=== PATIENT | female | born 1960 | race American Indian/Alaskan Native ===

== ENCOUNTER 2017-01-29 23:30 | Emergency (ER) | payer MEDICARE ==
--- NOTE | 2017-01-30 02:41 | Emergency Department Report ---
ED ENT HPI - General Chief complaint: Dental/Oral Stated complaint: TOOTHACHE/SINUS PAIN Time Seen by Provider: 01/30/17 02:28 Source: patient Mode of arrival: Ambulatory Limitations: No Limitations - History of Present Illness Initial comments: Patient comes into the ER today with complaints of tooth pain and sinus pain for the past 1-2 weeks. Patient states that 2 weeks ago she thinks her filling came out of her tooth and about a week ago she started getting some swelling on the right side of her face as well as tooth pain. Patient has using peroxide solution rinsing her mouth which she believes started helping at first but the pain and swelling continues. Patient states she did call a dentist and they cannot get her in for another 3 weeks. MD complaint: tooth pain - Related Data Home Medications Medication Instructions Recorded Confirmed Last Taken Aspirin [Aspirin BABY CHEW TAB] 81 mg PO QDAY 06/23/13 06/23/13 06/23/13 08:00 Carvedilol [Coreg] 12.5 mg PO BID 06/23/13 06/23/13 06/23/13 08:00 Lisinopril [Zestril TAB] 40 mg PO QDAY 06/23/13 06/23/13 06/23/13 08:00 Triamterene [Dyrenium] 100 mg PO QDAY 06/23/13 06/23/13 06/23/13 08:00 Previous Rx's Medication Instructions Recorded Last Taken Type Acetaminophen/Codeine [Tylenol 1 tab PO Q6H PRN #20 tab 01/30/17 Unknown Rx /Codeine # 3 tab] Amoxicillin 1,000 mg PO BID #40 capsule 01/30/17 Unknown Rx Allergies Allergy/AdvReac Type Severity Reaction Status Date / Time bee venom (honey bee) Allergy Shortness Verified 06/23/13 23:38 of Breath raw shrimp Allergy Shortness Uncoded 06/23/13 23:38 of Breath ED Dental HPI - General Chief complaint: Dental/Oral Stated complaint: TOOTHACHE/SINUS PAIN Time Seen by Provider: 01/30/17 02:28 Source: patient Mode of arrival: Ambulatory Limitations: No Limitations - Related Data Home Medications Medication Instructions Recorded Confirmed Last Taken Aspirin [Aspirin BABY CHEW TAB] 81 mg PO QDAY 06/23/13 06/23/13 06/23/13 08:00 Carvedilol [Coreg] 12.5 mg PO BID 06/23/13 06/23/13 06/23/13 08:00 Lisinopril [Zestril TAB] 40 mg PO QDAY 06/23/13 06/23/13 06/23/13 08:00 Triamterene [Dyrenium] 100 mg PO QDAY 06/23/13 06/23/13 06/23/13 08:00 Previous Rx's Medication Instructions Recorded Last Taken Type Acetaminophen/Codeine [Tylenol 1 tab PO Q6H PRN #20 tab 01/30/17 Unknown Rx /Codeine # 3 tab] Amoxicillin 1,000 mg PO BID #40 capsule 01/30/17 Unknown Rx Allergies Allergy/AdvReac Type Severity Reaction Status Date / Time bee venom (honey bee) Allergy Shortness Verified 06/23/13 23:38 of Breath raw shrimp Allergy Shortness Uncoded 06/23/13 23:38 of Breath ED Review of Systems ROS: Stated complaint: TOOTHACHE/SINUS PAIN Other details as noted in HPI Constitutional: denies: chills, fever Eyes: denies: eye pain, eye discharge, vision change ENT: dental pain, congestion. denies: ear pain, throat pain Respiratory: denies: cough, shortness of breath, wheezing Cardiovascular: denies: chest pain, palpitations Endocrine: no symptoms reported Gastrointestinal: denies: abdominal pain, nausea, diarrhea Genitourinary: denies: urgency, dysuria, discharge Musculoskeletal: denies: back pain, joint swelling, arthralgia Skin: denies: rash, lesions Neurological: denies: headache, weakness, paresthesias Psychiatric: denies: anxiety, depression Hematological/Lymphatic: denies: easy bleeding, easy bruising ED Past Medical Hx - Past Medical History Previous Medical History?: Yes Hx Hypertension: Yes Hx Congestive Heart Failure: Yes - Surgical History Past Surgical History?: Yes Hx Breast Surgery: Yes (lumpectomy L breast 2002) - Social History Smoking Status: Never Smoker Substance Use Type: None - Medications Home Medications: Home Medications Medication Instructions Recorded Confirmed Last Taken Type Aspirin [Aspirin BABY CHEW TAB] 81 mg PO QDAY 06/23/13 06/23/13 06/23/13 08:00 History Carvedilol [Coreg] 12.5 mg PO BID 06/23/13 06/23/13 06/23/13 08:00 History Lisinopril [Zestril TAB] 40 mg PO QDAY 06/23/13 06/23/13 06/23/13 08:00 History Triamterene [Dyrenium] 100 mg PO QDAY 06/23/13 06/23/13 06/23/13 08:00 History Acetaminophen/Codeine [Tylenol 1 tab PO Q6H PRN #20 tab 01/30/17 Unknown Rx /Codeine # 3 tab] Amoxicillin 1,000 mg PO BID #40 capsule 01/30/17 Unknown Rx ED Physical Exam - General Limitations: No Limitations General appearance: alert, in no apparent distress - Head Head exam: Present: atraumatic, normocephalic - Eye Eye exam: Present: normal appearance, PERRL. Absent: conjunctival injection - ENT ENT exam: Present: mucous membranes moist, TM's normal bilaterally, normal external ear exam, other (upper dentures noted. Right lower molar tooth with surrounding gum erythematous and swelling. No obvious abscess noted. Diffuse dental decay noted. Right maxillary nasal mucosa redness and turbinates swelling with right maxillary sinus tenderness to percussion. Slight right mandibular swelling noted in the area of tooth pain.) - Neck Neck exam: Present: normal inspection, full ROM. Absent: lymphadenopathy - Respiratory Respiratory exam: Present: normal lung sounds bilaterally. Absent: respiratory distress - Cardiovascular Cardiovascular Exam: Present: regular rate, normal rhythm. Absent: systolic murmur, diastolic murmur, rubs, gallop - GI/Abdominal GI/Abdominal exam: Present: soft, normal bowel sounds - Extremities Exam Extremities exam: Present: normal inspection - Back Exam Back exam: Present: normal inspection - Neurological Exam Neurological exam: Present: alert, oriented X3 - Psychiatric Psychiatric exam: Present: normal affect, normal mood - Skin Skin exam: Present: warm, dry, intact, normal color. Absent: rash ED Course Vital Signs 01/29/17 23:55 Temperature 98.1 F Pulse Rate 103 H Respiratory 18 Rate Blood Pressure 149/99 O2 Sat by Pulse 100 Oximetry ED Medical Decision Making - Medical Decision Making Patient is nontoxic and hemodynamically stable. Patient does have signs consistent with dental infection as well as sinus infection. I will give patient some information on dental clinics or she may keep her previously scheduled dental appointment. Patient is in agreement with treatment plan and patient is stable for discharge. Critical care attestation.: If time is entered above; I have spent that time in minutes in the direct care of this critically ill patient, excluding procedure time. ED Disposition Clinical Impression: Pain, dental, Dental infection, Sinusitis Disposition: TO HOME OR SELFCARE Is pt being admited?: No Does the pt Need Aspirin: No Condition: Good Instructions: Dental Abscess (ED), Sinusitis (ED), Toothache (ED) Prescriptions: Acetaminophen/Codeine [Tylenol /Codeine # 3 tab] 1 tab PO Q6H PRN #20 tab PRN Reason: Pain Amoxicillin 1,000 mg PO BID #40 capsule Referrals: PRIMARY CARE, [Primary Care Provider] - 3-5 Days [facility] [Outside] - 3-5 Days Time of Disposition: 02:41
[2017-01-30 03:18] VITALS: BP 137/99
== END 2017-01-30 02:45 | disposition home or self-care (01) ==
LOC: ED 23:30
DX: J32.9 Chronic sinusitis, unspecified (principal); K04.7 Periapical abscess without sinus; I10 Essential (primary) hypertension; I50.9 Heart failure, unspecified
CPT/HCPCS: 99282

== ENCOUNTER 2019-02-02 19:37 | Emergency (ER) | payer MEDICARE ==
[2019-02-02 20:45] LABS: Basophils # (Auto) 0.1 K/mm3 (0.0-0.1); Basophils % (Auto) 1.4 % (0.0-1.8); Eosinophils # (Auto) 0.2 K/mm3 (0.0-0.4); Eosinophils % (Auto) 2.6 % (0.0-4.3); Hematocrit 40.2 % (30.3-42.9); Hemoglobin 13.3 gm/dl (10.1-14.3); Lymphocytes # (Auto) 3.2 K/mm3 (1.2-5.4); Lymphocytes % (Auto) 45.7 % (13.4-35.0); Mean Corpuscular HGB Conc 33 % (30-34); Mean Corpuscular Volume 90 fl (79-97); Monocytes # (Auto) 0.8 K/mm3 (0.0-0.8); Monocytes % (Auto) 11.1 % (0.0-7.3); Platelet Count 262 K/mm3 (140-440); Red Blood Count 4.45 M/mm3 (3.65-5.03); Red Cell Distribution Width 13.9 % (13.2-15.2)
[2019-02-02 21:17] LABS: Alanine Aminotransferase 7 units/L (7-56); BUN/Creatinine Ratio 14; Blood Urea Nitrogen 14 mg/dL (7-17); Calcium 9.4 mg/dL (8.4-10.2); Hemolysis Index 0
--- NOTE | 2019-02-02 21:22 | Emergency Department Report ---
HPI - General Chief Complaint: Abdominal Pain Time Seen by Provider: 02/02/19 20:56 - HPI HPI: 58-year-old -[place] female presents to the emergency department from home with complaint of a 2-3 days history of some pain to the right lower back and buttock that radiates around her hip to the lower abdomen and pelvis. It is a sharp and intermittent/spasmodic pain. It is not affected by the patient's movements or by ambulation. She also says that in this area she has multiple lesions that she describes as hives that keep popping up over the past few days. She has not taken anything for her symptoms prior to presentation. She denies any fever, nausea, vomiting, chest pain, dysuria, vaginal bleeding or discharge. She has a past medical history of congestive heart failure and hypertension. Her primary care physician is Dr. Beth Stanford. ED Past Medical Hx - Past Medical History Hx Hypertension: Yes Hx Congestive Heart Failure: Yes - Surgical History Past Surgical History?: Yes Hx Breast Surgery: Yes (lumpectomy L breast 2002) - Social History Smoking Status: Current Every Day Smoker - Medications Home Medications: Home Medications Medication Instructions Recorded Confirmed Last Taken Type Aspirin [Aspirin BABY CHEW TAB] 81 mg PO QDAY 06/23/13 06/23/13 06/23/13 08:00 History Carvedilol [Coreg] 12.5 mg PO BID 06/23/13 06/23/13 06/23/13 08:00 History Lisinopril [Zestril TAB] 40 mg PO QDAY 06/23/13 06/23/13 06/23/13 08:00 History Triamterene [Dyrenium] 100 mg PO QDAY 06/23/13 06/23/13 06/23/13 08:00 History Amoxicillin 1,000 mg PO BID #40 capsule 01/30/17 Unknown Rx Acetaminophen/Codeine [Tylenol 1 tab PO Q6H PRN #20 tab 02/02/19 Unknown Rx /Codeine # 3 tab] Valacyclovir HCl [Valtrex] 1,000 mg PO TID #21 tablet 02/02/19 Unknown Rx ED Review of Systems ROS: Stated complaint: SOB BLOATING LOWER BACK SIDE PAIN LESIONS ON BACK Other details as noted in HPI Comment: All other systems reviewed and negative Constitutional: denies: chills, fever Eyes: denies: eye pain, vision change ENT: denies: ear pain, throat pain Respiratory: denies: cough, shortness of breath Cardiovascular: denies: chest pain, palpitations Gastrointestinal: abdominal pain. denies: nausea, vomiting Genitourinary: denies: dysuria, discharge Musculoskeletal: back pain. denies: joint swelling Skin: denies: rash, lesions Neurological: denies: headache, numbness, paresthesias Physical Exam - Physical Exam Vital Signs: Vital Signs 02/02/19 19:44 Temperature 98.4 F Pulse Rate 96 H Respiratory 18 Rate Blood Pressure 164/91 O2 Sat by Pulse 100 Oximetry Physical Exam: GENERAL: The patient is well-developed well-nourished. HENT: Normocephalic. Atraumatic. Patient has moist mucous membranes. EYES: Extraocular motions are intact. NECK: Supple. Trachea is midline. CHEST/LUNGS: Clear to auscultation. There is no respiratory distress noted. HEART/CARDIOVASCULAR: Regular. There is no tachycardia. There is no murmur. ABDOMEN: Abdomen is soft. No reproducible abdominal pain to palpation. Patient has normal bowel sounds. There is no abdominal distention. SKIN: Skin is warm and dry. The patient has multiple raised red lesions, often linear appearing, to the right upper buttock and lower lumbar and around the right hip and lower flank. No current weeping, drainage or crusting but appears consistent with shingles. NEURO: The patient is awake, alert, and oriented. The patient is cooperative. The patient has no focal neurologic deficits. The patient has normal speech. MUSCULOSKELETAL: There is no tenderness or deformity. There is no limitation range of motion. There is no evidence of acute injury. BACK: There is some right-sided CVA tenderness to palpation and reproducible lumbar paraspinal tenderness to palpation. ED Course Vital Signs 02/02/19 19:44 Temperature 98.4 F Pulse Rate 96 H Respiratory 18 Rate Blood Pressure 164/91 O2 Sat by Pulse 100 Oximetry ED Medical Decision Making - Lab Data Result diagrams: 02/02/19 20:23 02/02/19 20:23 - Medical Decision Making This patient presents with the complaint of a few days of some pain starting towards the lower back and buttock that radiates around her flank and towards th e lower abdomen. She also complains of some lesions or rash that keep popping up over the past few days. These lesions appear consistent with herpes zoster shingles. They do not cross midline and appear to be over a single dermatome. We had a long conversation regarding the diagnosis of shingles, the fact that she can be contagious and the precautions she must take, and the potential for some postherpetic neuralgia. The patient has been started on Valtrex. Her labs have been mostly unremarkable. Vital signs stable throughout her ED course. She will be discharged home to follow up with her primary care physician and has been given a prescription for Valtrex and for pain medication. She will return to the emergency Department with any worsening of her symptoms or any acute distress. - Differential Diagnosis shingles, sciatica, nephrolithiasis Critical Care Time: No Critical care attestation.: If time is entered above; I have spent that time in minutes in the direct care of this critically ill patient, excluding procedure time. ED Disposition Clinical Impression: Shingles Qualifiers: Herpes zoster complications: without complications Qualified Code(s): B02.9 - Zoster without complications Hypertension Qualifiers: Hypertension type: essential hypertension Qualified Code(s): I10 - Essential (primary) hypertension Disposition: DC-01 TO HOME OR SELFCARE Is pt being admited?: No Condition: Stable Instructions: Herpes Zoster (ED), Hypertension (ED) Additional Instructions: Please follow up with primary care physician in the next few days. Please take the antiviral medication as prescribed. As we discussed, you are contagious until the shingles rash/lesions have crusted over completely and are not developing new lesions. Therefore, please try and avoid contact with anyone who may be immunocompromised such as those individuals who are very, very young, undergoing some type of medical treatment making them susceptible to infections. Return to the emergency Department with any worsening of your symptoms or any acute distress. You have been prescribed a medication that is sedating and therefore should not be taken prior to driving, working, and responsible for children and in no way should be mixed with alcohol of any quantity. Prescriptions: Acetaminophen/Codeine [Tylenol /Codeine # 3 tab] 1 tab PO Q6H PRN #20 tab PRN Reason: Pain Valacyclovir HCl [Valtrex] 1,000 mg PO TID #21 tablet Referrals: BETH STANFORD MD [Staff Physician] - 3-5 Days Time of Disposition: 23:38
[2019-02-02] MEDS ORDERED: MORPHINE IV ONE (21:25)
[2019-02-02 21:26] LABS: Bilirubin,Urine NEG (Negative); Blood,Urine NEG (Negative); Color,Urine Yellow (Yellow); Protein,Urine <15 mg/dL mg/dL (Negative); Urobilinogen,Urine < 2.0 mg/dL (<2.0)
[2019-02-02] MEDS ORDERED: VALTREX PO ONE (22:06)
[2019-02-03 00:24] VITALS: BP 164/79
== END 2019-02-03 00:25 | disposition home or self-care (01) ==
LOC: ED 19:37
DX: B02.9 Zoster without complications (principal); I11.0 Hypertensive heart disease with heart failure; I50.9 Heart failure, unspecified; F17.200 Nicotine dependence, unspecified, uncomplicated; Z79.82 Long term (current) use of aspirin; Z79.899 Other long term (current) drug therapy; Z91.030 Bee allergy status; Z91.013 Allergy to seafood
CPT/HCPCS: 36415; 80053; 81001; 85025; 96374; 99283; J2270

== ENCOUNTER 2021-09-12 11:13 | Outpatient (CLI) | payer MEDICARE ==
--- NOTE | 2021-09-12 12:40 | XRay Report ---
BILATERAL KNEE 3 VIEW(S) INDICATION / CLINICAL INFORMATION: PAIN IN LEFT KNEE COMPARISON: None available. FINDINGS: BONES / JOINT(S): No acute fracture or subluxation. Severe osteoarthrosis involving the medial femora l tibial compartment of the left knee. Mild degenerative changes of the right knee. SOFT TISSUES: Vascular calcification. ADDITIONAL FINDINGS: None. Signer Name: Rodolfo Arcos MD Signed: 09/12/2021 12:36 PM Workstation Name: [id number]
== END 2021-09-12 11:14 | disposition home or self-care (01) ==
LOC: XRAY 11:13
PROVIDERS: ATTEND Orthopaedic Surgery
DX: M17.0 Bilateral primary osteoarthritis of knee (principal)